=== PATIENT | female | born 1980 | race Caucasian/White ===

== ENCOUNTER 2019-10-08 16:48 | Emergency (ER) | payer OTHER, SELFPAY ==
[~2019-10-08] VITALS: Ht 172.7 cm; Wt 65.8 kg
[2019-10-08 16:51] VITALS: BP 133/77
--- NOTE | 2019-10-08 17:00 | NUR ---
PT INSTRUCTED TO WAIT IN TENT
--- NOTE | 2019-10-08 17:07 | NUR ---
39 Y/O FEMALE C/O GEN WEAKNESS/ FATIGUE/ N/V/D/ SOB/CHEST PAIN X1 MONTH. PT STATES SHE HAS TESTED NEGATIVE FOR COVID 4 TIMES, AND HER PCP IS NOT TAKING APPOINTMENTS. RESP EVEN AND UNLABORED. SP02 97% RA. NO DISTRESS NOTED AT THIS TIME. SKIN WARM/DRY. AAOX4. CAP REFILL <3. PT STATES SHE HAS HAD SIGNIFICANT AMOUNT OF WEIGHTLOSS THIS MONTH DUE TO LOSS OF APPETITE. AMBULATORY WITH STEADY GAIT. DENIES PMH NKA
[2019-10-08] MEDS ORDERED: NACL 0.9% 1,000 ML IV ONE (18:10)
--- NOTE | 2019-10-08 18:24 | NUR ---
ambulated to restroom with steady gait for sample
[2019-10-08 18:47] LABS: BASOPHILS # (AUTO) 0.1 K/uL (0.00-0.22); BASOPHILS % (AUTO) 0.8 % (0.0-2.0); EOSINOPHILS % (AUTO) 0.3 % (0.0-4.0); HEMATOCRIT 42.1 % (36-48); HEMOGLOBIN 13.6 g/dL (12.0-16.0); LYMPHOCYTES # (AUTO) 2.2 K/uL (2.5-16.5); LYMPHOCYTES % (AUTO) 21.2 % (20.5-51.1); MEAN CORPUSCULAR HEMOGLOBIN 28 pg (27-31); MEAN CORPUSCULAR HGB CONC 32 g/dL (33-37); MEAN CORPUSCULAR VOLUME 85.8 fL (80-94); MONOCYTES # (AUTO) 0.9 K/uL (0.8-1.0); MONOCYTES % (AUTO) 8.3 % (1.7-9.3); NEUTROPHILS # (AUTO) 7.2 K/uL (1.8-7.7); NEUTROPHILS % (AUTO) 69.4 % (42.2-75.2); PLATELET COUNT (AUTO) 215 K/uL (140-450); RED BLOOD CELL COUNT(AUTO) 4.91 MIL/uL (4.20-5.40); RED CELL DISTRIBUTION WIDTH 14.9 % (11.6-13.7); WHITE BLOOD COUNT (AUTO) 10.4 K/uL (4.8-10.8)
--- NOTE | 2019-10-08 19:22 | NUR ---
PT RETURNED FROM CT VIA W/C
[2019-10-08 19:26] LABS: ALBUMIN 3.8 g/dL (3.4-5.0); ANION GAP 15.5 (8-16); ASPARTATE AMINOTRANSFERASE 10 U/L (15-37); CARBON DIOXIDE 25.1 mmol/L (21-32); CHLORIDE 101 mmol/L (98-107); CREATININE 0.7 mg/dL (0.6-1.3); GFR ARICAN-AMERICAN 120 mL/min (>90); GLUCOSE 94 mg/dL (74-106); LIPASE 228 U/L (73-393); POTASSIUM 3.6 mmol/L (3.5-5.1); SODIUM SERUM 138 mmol/L (136-145); THYROID STIMULATING HORMONE 0.57 uIU/mL (0.34-3.74); TOTAL BILIRUBIN 1.5 mg/dL (0.0-1.0); UREA NITROGEN, BLOOD 7 mg/dL (7-18)
[2019-10-08 19:46] LABS: ACETONE, SERUM NEGATIVE (NEGATIVE)
--- NOTE | 2019-10-08 19:53 | NUR ---
In bed resting. VSS. provided blanket per request.
[2019-10-08 20:30] LABS: BARBITURATE, URINE NEGATIVE ng/ml (NEG <=200); BENZODIAZEPINE, URINE NEGATIVE ng/mL (NEG <=200); CANNABINOID, URINE NEGATIVE ng/mL (NEG <=50); COCAINE, URINE NEGATIVE ng/mL (NEG <=300); OPIATE, URINE NEGATIVE ng/mL (NEG <=2000); PHENCYCLIDINE SCREEN,URINE NEGATIVE ng/mL (NEG <=25)
[2019-10-08 20:37] VITALS: BP 113/77
--- NOTE | 2019-10-08 21:17 | NUR ---
states " feeling a little bit better" after ns bolus administration
--- NOTE | 2019-10-08 21:42 | NUR ---
covid swab collected via oropharyngeal route.
--- NOTE | 2019-10-08 21:43 | NUR ---
Patient discharged with v/s stable. Written and verbal after care instructions given and explained. Patient verbalized understanding. Ambulatory with steady gait. All questions addressed prior to discharge. Advised to follow up with PMD.
--- NOTE | 2019-10-12 10:38 | NUR ---
Covid results received from lab. Results = NOT DETECTED. Hard copy requested from lab and placed in infection controls mailbox.
== END 2019-10-08 21:43 | disposition home or self-care (01) ==
LOC: MED 16:48
DX: R06.02 Shortness of breath (principal); R20.0 Anesthesia of skin; N64.4 Mastodynia
CPT/HCPCS: 36415; 36600; 71250; 74176; 80053; 80305; 81002; 81025; 82009; 82803; 83690; 84443; 84484; 85025; 85379; 96360; 99285; U0003; J7030

== ENCOUNTER 2019-12-11 19:58 | Emergency (ER) | payer OTHER, SELFPAY ==
[~2019-12-11] VITALS: Ht 172.7 cm; Wt 77.1 kg
[2019-12-11 20:08] VITALS: BP 131/94
--- NOTE | 2019-12-11 20:20 | NUR ---
PT AMBUALTED TO BED 4 WITH STEADY GAIT.
--- NOTE | 2019-12-11 20:24 | NUR ---
39 Y/O FEMALE PRESENTED TO THE ED C/O GOTTLIEB PAIN 5/10, DIZZINESS, LETHARGY AND NAUSEA X1 DAY. PT DENIES VOMITING. PT STATES TAKING HER SON'S HYPERTENSION MEDICATION OF [place] X2 HOURS. PT STATES TAKING DULOXETINE 30 MG DAILY X2 MONTHS. PT TOOK LEVOTHYROXINE TODAY. PERRLA. PT IS NOT IN ANY ACUTE DISTRESS AT THIS TIME. PT IS CONNECTED TO [employer]. PT IS LAYING DOWN IN THE BED, BED IS IN LOWEST POSITION, BED IS LOCKED. PMH: HYPOTHYROIDISM X 7 YEARS NKA
--- NOTE | 2019-12-11 20:45 | NUR ---
ER EMT AT BEDSIDE FOR EKG
--- NOTE | 2019-12-11 20:45 | NUR ---
EKG PERFORMED AT BEDSIDE. PATIENT COVERED IN GOWN DURING PROCEDURE EKG READS SINUS RHYTHM WITH A RATE OF 76.
[2019-12-11 21:13] LABS: BASOPHILS # (AUTO) 0.1 K/uL (0.00-0.22); BASOPHILS % (AUTO) 0.7 % (0.0-2.0); EOSINOPHILS % (AUTO) 0.3 % (0.0-4.0); HEMATOCRIT 39.1 % (36-48); HEMOGLOBIN 12.9 g/dL (12.0-16.0); LYMPHOCYTES # (AUTO) 1.7 K/uL (2.5-16.5); LYMPHOCYTES % (AUTO) 18.6 % (20.5-51.1); MEAN CORPUSCULAR HEMOGLOBIN 28 pg (27-31); MEAN CORPUSCULAR HGB CONC 33 g/dL (33-37); MEAN CORPUSCULAR VOLUME 83.4 fL (80-94); MONOCYTES # (AUTO) 0.7 K/uL (0.8-1.0); MONOCYTES % (AUTO) 8.4 % (1.7-9.3); NEUTROPHILS # (AUTO) 6.5 K/uL (1.8-7.7); PLATELET COUNT (AUTO) 187 K/uL (140-450); RED BLOOD CELL COUNT(AUTO) 4.69 MIL/uL (4.20-5.40); RED CELL DISTRIBUTION WIDTH 15.4 % (11.6-13.7)
[2019-12-11 21:25] LABS: PROTHROMBIN TIME 10.3 secs (10.8-13.4)
[2019-12-11 21:27] LABS: ALBUMIN 3.4 g/dL (3.4-5.0); ANION GAP 13.7 (8-16); CARBON DIOXIDE 25.7 mmol/L (21-32); CREATININE 0.6 mg/dL (0.6-1.3); POTASSIUM 3.4 mmol/L (3.5-5.1); TOTAL BILIRUBIN 0.7 mg/dL (0.0-1.0)
--- NOTE | 2019-12-11 22:19 | NUR ---
ERMD AT BEDSIDE FOR RE EVALUATION.
[2019-12-11 22:27] VITALS: BP 128/87
== END 2019-12-11 22:27 | disposition home or self-care (01) ==
LOC: MED 19:58
DX: R42 Dizziness and giddiness (principal); R53.82 Chronic fatigue, unspecified; E87.6 Hypokalemia; E03.9 Hypothyroidism, unspecified
CPT/HCPCS: 36415; 80053; 81002; 81025; 84484; 85025; 85610; 85730; 93005; 99284

== ENCOUNTER 2021-02-07 06:37 | Day surgery (SDC) | payer OTHER ==
[~2021-02-07] VITALS: Ht 175.3 cm; Wt 78.0 kg
[2021-02-07] MEDS ORDERED: fentaNYL citrate 0.05 MG/ML VIAL ONE (08:08)
[2021-02-07] MEDS ORDERED: MIDAZOLAM 5 MG/5 ML VIAL ONE (08:08)
[2021-02-07] MEDS ORDERED: MIDAZOLAM 2 MG/2 ML VIAL IVP ONE (08:30)
== END 2021-02-07 09:06 | disposition home or self-care (01) ==
LOC: MDS 06:37 → MMU 06:41 → MDS 09:06
PROVIDERS: ATTEND Internal Medicine Gastroenterology
DX: R10.13 Epigastric pain (principal); K29.70 Gastritis, unspecified, without bleeding; Z79.899 Other long term (current) drug therapy
CPT/HCPCS: 36415; 43239; 81025; 86677; J2250; J3010